=== PATIENT | male | born 1960 | race Caucasian/White ===

== ENCOUNTER 2017-12-21 20:37 | Emergency (ER) | payer SELFPAY ==
--- NOTE | 2017-12-21 21:59 | C.PDOC ---
History Of Present Illness Fer Garcia is a 57 year old male, whose past medical history includes renal stones, who presents to the emergency department complaining of cough and chest congestion since 5 days. Patient reports he also had body aches and nasal congestion. He is concerned about having the flu. Patient denies chest pain, shortness of breath, headache, fever, chills, nausea, vomiting, diarrhea, abdominal pain, dizziness or other complaints. Time Seen by Provider: 12/21/17 21:39 Chief Complaint (Nursing): Flu-like Symptoms History Per: Patient History/Exam Limitations: no limitations Onset/Duration Of Symptoms: Days Current Symptoms Are (Timing): Still Present Location Of Pain: Sinus/es, Diffuse Myalgias Associated Symptoms: Cough, Myalgias, Nasal Congestion. denies: Fever, Chills, Nausea, Vomiting, Diarrhea Ear Symptoms: Bilateral: None Past Medical History Reviewed: Historical Data, Nursing Documentation, Vital Signs Vital Signs: Last Vital Signs Temp 98.9 F 12/21/17 21:23 Pulse 90 12/21/17 21:23 Resp 18 12/21/17 21:23 BP 129/82 12/21/17 21:23 Pulse Ox 96 12/21/17 22:04 - Medical History PMH: Kidney Stones Denies: Atrial Fibrillation, Cardia Arrhythmia, CHF, HTN, Hypercholesterolemia, Mitral Valve Prolapse, Peripheral Edema Surgical History: Appendectomy Denies: Pacemaker - [facility] Procedures LAPAROSCOP APPENDECTOMY (05/14/14) Family History: States: Unknown Family Hx - Social History Hx Tobacco Use: No Hx Alcohol Use: No Hx Substance Use: No - Immunization History Hx Tetanus Toxoid Vaccination: No Hx Influenza Vaccination: No Hx Pneumococcal Vaccination: No Review Of Systems Constitutional: Negative for: Fever, Chills ENT: Positive for: Nose Congestion Cardiovascular: Positive for: Other (chest congestion) Respiratory: Positive for: Cough. Negative for: Shortness of Breath Gastrointestinal: Negative for: Vomiting Genitourinary: Negative for: Dysuria, Frequency Neurological: Negative for: Headache, Dizziness Psych: Negative for: Anxiety Physical Exam - Physical Exam Appears: Well, Non-toxic, No Acute Distress Skin: Normal Color, Warm, Dry Head: Atraumatic, Normacephalic Eye(s): bilateral: Normal Inspection, PERRL, EOMI Nose: Other (nasal congestion) Throat: Normal, No Erythema Neck: Normal ROM Chest: No Tenderness Cardiovascular: Rhythm Regular Respiratory: Normal Breath Sounds, No Decreased Breath Sounds, No Rales, No Rhonchi, No Wheezing Gastrointestinal/Abdominal: Normal Exam, Soft, No Tenderness Extremity: Normal ROM Neurological/Psych: Oriented x3, Normal Speech, Normal Cognition, Normal Sensation Gait: Steady ED Course And Treatment - Laboratory Results Lab Interpretation: Normal (influenza negative) O2 Sat by Pulse Oximetry: 96 (room air) Pulse Ox Interpretation: Normal - Radiology CXR: Interpreted by Me CXR Interpretation: Yes: No Acute Disease Medical Decision Making Medical Decision Making: Impression: 57 y/o male with nasal congestion and coughing. Plan: -- Labs -- Reassess and disposition Disposition Counseled Patient/Family Regarding: Studies Performed, Diagnosis, Need For Followup, Rx Given - Disposition Referrals: Sarah Roberts MD [Primary Care Provider] - Disposition: HOME/ ROUTINE Disposition Time: 00:36 Condition: STABLE Prescriptions: Amoxicillin/Clavulanate [Augmentin 875 MG-125 MG] 1 tab PO BID #20 tab Instructions: Upper Respiratory Infection (ED) Forms: [employer] (Turkish) - Clinical Impression Clinical Impression: Upper respiratory infection - Scribe Statement The provider has reviewed the documentation as recorded by the Scribe Scribe Attestation: Leanne Wilson MD Scribe Attestation: All medical record entries made by the Scribe were at my direction and personally dictated by me. I have reviewed the chart and agree that the record accurately reflects my personal performance of the history, physical exam, medical decision making, and the department course for this patient. I have also personally directed, reviewed, and agree with the discharge instructions and disposition.
[2017-12-22 00:48] VITALS: BP 122/70; PULSE 81; RESP 20; TEMP 97.8; O2SAT 99
--- NOTE | 2017-12-22 09:06 | RAD ---
Chest x-ray two views History: Shortness of breath. Comparison: 08/14/2014 Findings: Patchy increased linear consolidative changes in the lateral aspect of the right upper to mid lung zone. Blunting of the right costophrenic angle. Diffuse increased interstitial lung markings. Upper lobe granulomatous changes. Tortuous aorta. Degenerative changes in the spine and shoulders. Impression: Patchy increased linear consolidative changes in the lateral aspect of the right upper to mid lung zone. Blunting of the right costophrenic angle. Diffuse increased interstitial lung markings. Upper lobe granulomatous changes.
== END 2017-12-22 00:48 | disposition home or self-care (01) ==
LOC: C.ER 20:37 → SUPCPDRO 20:37 → C.ER 12-22 00:48
DX: J06.9 Acute upper respiratory infection, unspecified (principal)